=== PATIENT | male | born 1980 | race Caucasian/White ===

== ENCOUNTER 2025-03-16 13:33 | Outpatient (CLI) | payer OTHER ==
[2025-03-16 15:09] LABS: Anion Gap 11 mmol/L (10-20); BUN (Urea Nitrogen) 18 mg/dL (8.9-20.6); Calc. Creatinine Clearance 0 mL/min (70-130); Calcium 9.2 mg/dL (7.8-10.44); Carbon Dioxide 26 mmol/L (22-29); Chloride 105 mmol/L (98-107); Glucose 181 mg/dL (70-105); Potassium 3.9 mmol/L (3.5-5.1); Sodium 138 mmol/L (136-145)
== END 2025-03-16 13:34 | disposition home or self-care (01) ==
LOC: CSHLAB 13:33
PROVIDERS: ATTEND Podiatrist Foot & Ankle Surgery
DX: Z01.818 Encounter for other preprocedural examination (principal); M20.41 Other hammer toe(s) (acquired), right foot; M20.42 Other hammer toe(s) (acquired), left foot; M25.571 Pain in right ankle and joints of right foot; M25.572 Pain in left ankle and joints of left foot; S93.129A Dislocation of metatarsophalangeal joint of unspecified toe(s), initial encounter
CPT/HCPCS: 80048; 93005; 93010